=== PATIENT | female | born 1985 | race Caucasian/White ===

== ENCOUNTER 2017-09-11 16:15 | Inpatient (IN) | payer OTHER ==
[2017-09-11] MEDS ORDERED: ALBUTEROL HFA 8 GM INHALER INH (21:00)
[2017-09-11] MEDS: ACETAMINOPHEN 325 MG TAB PO (21:35)
[2017-09-11] MEDS: SUMATRIPTAN 6 MG/0.5 ML INJ SC (22:00)
[2017-09-12] MEDS: ACETAMINOPHEN 325 MG TAB PO ×4 (02:12→21:17)
[2017-09-12] MEDS: ALBUTEROL HFA 8 GM INHALER INH (02:13)
[2017-09-12] MEDS ORDERED: NACL 0.9% 3 ML SYG IV (09:00)
[2017-09-12] MEDS ORDERED: ONDANSETRON 4 MG INJ IV (09:00)
[2017-09-12] MEDS: ASPIRIN (EC) 81 MG TAB PO (09:07)
[2017-09-12] MEDS: LISINOPRIL 20 MG TAB PO (09:08)
[2017-09-12] MEDS: METOPROLOL (XL) 25 MG TAB PO (09:08)
[2017-09-12] MEDS: ENOXAPARIN 40 MG/0.4 ML SYG SC (09:10)
[2017-09-12 09:12] LABS: ADD MAN DIFF? NO
[2017-09-12 09:23] LABS: WHITE BLOOD COUNT 10.4 10^3/ul (4.8-10.8)
[2017-09-12 09:23] LABS: BASOPHILS % 0.3 % (0.0-2.0); EOSINOPHILS # 0.2 10^3/ul (0.0-0.5); EOSINOPHILS % 1.9 % (0.0-7.0); HEMATOCRIT 43.7 % (37.0-47.0); HEMOGLOBIN 14.2 g/dl (12.0-16.0); LYMPHOCYTES # 2.5 10^3/ul (0.8-2.9); LYMPHOCYTES % 23.8 % (15.0-51.0); MEAN CORPUSCULAR HEMOGLOBIN 28.3 pg (29.0-33.0); MEAN CORPUSCULAR HGB CONC 32.5 g/dl (32.0-37.0); MEAN CORPUSCULAR VOLUME 87.2 fl (82.0-101.0); MEAN PLATELET VOLUME 11.9 fl (7.4-10.4); MONOCYTE # 0.6 10^3/ul (0.3-0.9); MONOCYTES % 5.7 % (0.0-11.0); NEUTROPHIL # 7.1 10^3/ul (1.6-7.5); PLATELET COUNT 295 10^3/UL (140-415); RED BLOOD COUNT 5.01 10^6/ul (4.20-5.40); RED CELL DISTRIBUTION WIDTH 14.4 % (11.5-14.5)
[2017-09-12] MEDS: BUMETANIDE 1 MG TAB PO (09:34)
[2017-09-12] MEDS: IVABRADINE HCL 5 MG TABLET PO ×2 (09:35→20:57)
[2017-09-12 09:43] LABS: ALANINE AMINOTRANSFERASE 41 IU/L (13-69); ALBUMIN 3.7 g/dl (3.3-4.9); ALBUMIN/GLOBULIN RATIO 1.05; ALKALINE PHOSPHATASE 53 IU/L (42-121); ANION GAP 9 (8-16); ASPARTATE AMINO TRANSFERASE 24 IU/L (15-46); BILIRUBIN,INDIRECT 0.6 mg/dl (0-1.1); BILIRUBIN,TOTAL 0.6 mg/dl (0.2-1.3); BLOOD UREA NITROGEN 13 mg/dl (7-20); CALCIUM 9.4 mg/dl (8.4-10.2); CARBON DIOXIDE 29 mmol/L (21-31); CHLORIDE 108 mmol/L (97-110); CHOL/HDL RATIO 5.9 RATIO; CHOLESTEROL 148 mg/dl (100-200); CREATININE 0.67 mg/dl (0.44-1.00); GLUCOSE 116 mg/dl (70-220); HDL CHOLESTEROL 25 mg/dl (34-82); LDL CHOLESTEROL,CALCULATED 101 mg/dl; MAGNESIUM 1.8 mg/dl (1.7-2.5); PHOSPHORUS 3.7 mg/dl (2.5-4.9); POTASSIUM 4.1 mmol/L (3.5-5.1); SODIUM 142 mmol/L (135-144); TOTAL PROTEIN 7.2 g/dl (6.1-8.1); TRIGLYCERIDES 109 mg/dl (0-149)
[2017-09-12 12:02] LABS: ADD UMIC YES; UR ASCORBIC ACID NEGATIVE (NEGATIVE); UR BILIRUBIN (Dip) NEGATIVE (NEGATIVE); UR BLOOD (Dip) 1+ mg/dL (NEGATIVE); UR CLARITY CLEAR (CLEAR); UR COLOR COLORLESS (YELLOW); UR GLUCOSE (Dip) NEGATIVE (NEGATIVE); UR KETONES (Dip) NEGATIVE (NEGATIVE); UR LEUKOCYTE ESTERASE (Dip) NEGATIVE Leu/ul (NEGATIVE); UR NITRITE (Dip) NEGATIVE (NEGATIVE); UR RBC 0 /HPF (0-5); UR SPECIFIC GRAVITY (Dip) 1.005 (1.003-1.030); UR TOTAL PROTEIN (Dip) NEGATIVE (NEGATIVE); UR UROBILINOGEN (Dip) NEGATIVE (NEGATIVE); UR WBC 0 /HPF (0-5)
[2017-09-12] MEDS: PIPER-TAZO 3.375 GM IV (PMX) 100 ML IVPB ×2 (12:40→17:47)
[2017-09-12 14:00] LABS: HEMOGLOBIN A1C 5.9 % (0-5.9)
[2017-09-12 15:40] LABS: C-REACTIVE PROTEIN 1.1 mg/dl (0.0-0.9)
[2017-09-12 16:40] LABS: ERYTHROCYTE SEDIMENTATION RATE 30 mm/Hr (0-20)
[2017-09-12] MEDS: SPIRONOLACTONE 50 MG TAB PO (20:56)
[2017-09-12] MEDS: SACUBITRIL/VALSARTAN (24mg-26mg) TABLET PO (20:57)
[2017-09-13] MEDS: PIPER-TAZO 3.375 GM IV (PMX) 100 ML IVPB ×4 (00:36→17:24)
[2017-09-13] MEDS: ACETAMINOPHEN 325 MG TAB PO ×2 (05:54→21:45)
[2017-09-13 07:21] LABS: ADD MAN DIFF? NO
[2017-09-13 07:25] LABS: BASOPHILS % 0.3 % (0.0-2.0); EOSINOPHILS # 0.2 10^3/ul (0.0-0.5); EOSINOPHILS % 1.6 % (0.0-7.0); HEMATOCRIT 48.1 % (37.0-47.0); HEMOGLOBIN 15.7 g/dl (12.0-16.0); LYMPHOCYTES # 2.4 10^3/ul (0.8-2.9); LYMPHOCYTES % 16.1 % (15.0-51.0); MEAN CORPUSCULAR HEMOGLOBIN 28.5 pg (29.0-33.0); MEAN CORPUSCULAR HGB CONC 32.6 g/dl (32.0-37.0); MEAN CORPUSCULAR VOLUME 87.3 fl (82.0-101.0); MEAN PLATELET VOLUME 12.1 fl (7.4-10.4); MONOCYTE # 0.9 10^3/ul (0.3-0.9); MONOCYTES % 6.4 % (0.0-11.0); NEUTROPHILS % 75.2 % (39.0-77.0); PLATELET COUNT 308 10^3/UL (140-415); RED BLOOD COUNT 5.51 10^6/ul (4.20-5.40); RED CELL DISTRIBUTION WIDTH 14.7 % (11.5-14.5)
[2017-09-13 07:25] LABS: WHITE BLOOD COUNT 14.7 10^3/ul (4.8-10.8)
[2017-09-13 07:55] LABS: ANION GAP 10 (8-16); BLOOD UREA NITROGEN 14 mg/dl (7-20); CALCIUM 9.7 mg/dl (8.4-10.2); CARBON DIOXIDE 30 mmol/L (21-31); CHLORIDE 105 mmol/L (97-110); CREATININE 0.77 mg/dl (0.44-1.00); GLUCOSE 113 mg/dl (70-220); PHOSPHORUS 4.8 mg/dl (2.5-4.9); POTASSIUM 4.1 mmol/L (3.5-5.1); SODIUM 141 mmol/L (135-144)
[2017-09-13] MEDS: HYDROCODONE/APAP (5/325) TAB PO ×2 (08:54→15:28)
[2017-09-13 08:55] LABS: FOLATE 13.8 ng/ml (2.8-20.0)
[2017-09-13] MEDS: ASPIRIN (EC) 81 MG TAB PO (08:56)
[2017-09-13] MEDS: METOPROLOL (XL) 25 MG TAB PO (08:57)
[2017-09-13] MEDS: SACUBITRIL/VALSARTAN (24mg-26mg) TABLET PO ×2 (08:58→21:15)
[2017-09-13] MEDS: SPIRONOLACTONE 50 MG TAB PO ×2 (08:59→21:16)
[2017-09-13] MEDS: SENNA TAB PO ×2 (08:59→21:15)
[2017-09-13] MEDS: IVABRADINE HCL 5 MG TABLET PO ×2 (08:59→21:15)
[2017-09-13] MEDS: BUMETANIDE 1 MG TAB PO (09:00)
[2017-09-13] MEDS: ENOXAPARIN 40 MG/0.4 ML SYG SC (09:05)
[2017-09-13 11:42] LABS: GLUCOSE,CSF 65 mg/dl (50-80)
[2017-09-13 11:42] LABS: TOTAL PROTEIN,CSF 41 mg/dl (12-60)
[2017-09-13 11:43] LABS: CSF MN% 66.7 %; CSF PMN% 33.3 %; CSF RBC 0 /uL (0-0); CSF WBC 3 /cmm (0-10)
[2017-09-13 11:47] LABS: CSF COLOR COLORLESS
[2017-09-13 11:47] LABS: CSF CLARITY CLEAR; CSF VOLUME 14.8 ml; CSF#TUBE COUNT TUBE#4; CSF#TUBES REC'D 4
[2017-09-13 14:45] LABS: CREATINE KINASE 54 IU/L (23-200)
[2017-09-13 15:29] LABS: RHEUMATOID FACTOR NEGATIVE (NEGATIVE)
[2017-09-14] MEDS: PIPER-TAZO 3.375 GM IV (PMX) 100 ML IVPB ×2 (00:28→06:19)
[2017-09-14] MEDS: HYDROCODONE/APAP (5/325) TAB PO ×2 (02:35→09:29)
[2017-09-14] MEDS: morphine LIQ (10 MG/5 ML) CUP PO (07:14)
[2017-09-14 08:18] LABS: ADD MAN DIFF? NO
[2017-09-14 08:24] LABS: BASOPHILS % 0.3 % (0.0-2.0); EOSINOPHILS # 0.3 10^3/ul (0.0-0.5); EOSINOPHILS % 1.8 % (0.0-7.0); HEMATOCRIT 50.5 % (37.0-47.0); HEMOGLOBIN 16.6 g/dl (12.0-16.0); LYMPHOCYTES # 2.6 10^3/ul (0.8-2.9); LYMPHOCYTES % 16.8 % (15.0-51.0); MEAN CORPUSCULAR HEMOGLOBIN 28.6 pg (29.0-33.0); MEAN CORPUSCULAR HGB CONC 32.9 g/dl (32.0-37.0); MEAN CORPUSCULAR VOLUME 87.1 fl (82.0-101.0); MEAN PLATELET VOLUME 12.3 fl (7.4-10.4); MONOCYTE # 1.1 10^3/ul (0.3-0.9); MONOCYTES % 7.1 % (0.0-11.0); NEUTROPHIL # 11.4 10^3/ul (1.6-7.5); NEUTROPHILS % 73.7 % (39.0-77.0); PLATELET COUNT 360 10^3/UL (140-415)
[2017-09-14 08:24] LABS: WHITE BLOOD COUNT 15.4 10^3/ul (4.8-10.8)
[2017-09-14] MEDS: BUMETANIDE 1 MG TAB PO (08:49)
[2017-09-14] MEDS: SACUBITRIL/VALSARTAN (24mg-26mg) TABLET PO ×2 (08:50→20:40)
[2017-09-14] MEDS: SPIRONOLACTONE 50 MG TAB PO ×2 (08:50→20:41)
[2017-09-14] MEDS: IVABRADINE HCL 5 MG TABLET PO ×2 (08:50→20:40)
[2017-09-14] MEDS: ASPIRIN (EC) 81 MG TAB PO (08:51)
[2017-09-14] MEDS: METOPROLOL (XL) 25 MG TAB PO (08:51)
[2017-09-14 08:58] LABS: ANION GAP 14 (8-16); BLOOD UREA NITROGEN 19 mg/dl (7-20); CALCIUM 9.9 mg/dl (8.4-10.2); CARBON DIOXIDE 31 mmol/L (21-31); CHLORIDE 101 mmol/L (97-110); CREATININE 1.01 mg/dl (0.44-1.00); GLUCOSE 122 mg/dl (70-220); POTASSIUM 4.1 mmol/L (3.5-5.1); SODIUM 142 mmol/L (135-144)
[2017-09-14] MEDS: ENOXAPARIN 40 MG/0.4 ML SYG SC (09:09)
[2017-09-14] MEDS: SENNA TAB PO ×2 (09:30→20:40)
[2017-09-14] MEDS: CEFTRIAXONE 1 GM/50 ML (PMX) 50 ML IVPB (10:37)
[2017-09-14] MEDS: HYDROmorphONE 1 MG/ML SYG IV ×2 (12:59→20:40)
[2017-09-14 13:27] LABS: ANA SCREEN NEGATIVE (NEGATIVE)
[2017-09-14] MEDS: MAGNESIUM HYDROXIDE 30ML CUP PO (18:38)
[2017-09-15] MEDS: HYDROmorphONE 1 MG/ML SYG IV ×2 (02:42→10:21)
[2017-09-15 06:22] LABS: ADD MAN DIFF? NO
[2017-09-15 06:30] LABS: WHITE BLOOD COUNT 17.3 10^3/ul (4.8-10.8)
[2017-09-15 06:30] LABS: BASOPHIL # 0.1 10^3/ul (0.0-0.1); BASOPHILS % 0.3 % (0.0-2.0); EOSINOPHILS # 0.3 10^3/ul (0.0-0.5); EOSINOPHILS % 1.5 % (0.0-7.0); HEMATOCRIT 49.5 % (37.0-47.0); HEMOGLOBIN 16.2 g/dl (12.0-16.0); LYMPHOCYTES % 17.1 % (15.0-51.0); MEAN CORPUSCULAR HEMOGLOBIN 28.7 pg (29.0-33.0); MEAN CORPUSCULAR HGB CONC 32.7 g/dl (32.0-37.0); MEAN CORPUSCULAR VOLUME 87.6 fl (82.0-101.0); MEAN PLATELET VOLUME 12.2 fl (7.4-10.4); MONOCYTE # 1.3 10^3/ul (0.3-0.9); MONOCYTES % 7.6 % (0.0-11.0); NEUTROPHIL # 12.6 10^3/ul (1.6-7.5); NEUTROPHILS % 73.2 % (39.0-77.0); PLATELET COUNT 365 10^3/UL (140-415); RED BLOOD COUNT 5.65 10^6/ul (4.20-5.40)
[2017-09-15 06:55] LABS: ANION GAP 15 (8-16); BLOOD UREA NITROGEN 30 mg/dl (7-20); CALCIUM 9.6 mg/dl (8.4-10.2); CARBON DIOXIDE 28 mmol/L (21-31); CHLORIDE 100 mmol/L (97-110); CREATININE 1.01 mg/dl (0.44-1.00); GLUCOSE 117 mg/dl (70-220); POTASSIUM 4.7 mmol/L (3.5-5.1); SODIUM 138 mmol/L (135-144)
[2017-09-15] MEDS: SACUBITRIL/VALSARTAN (24mg-26mg) TABLET PO ×2 (08:24→22:36)
[2017-09-15] MEDS: IVABRADINE HCL 5 MG TABLET PO ×2 (08:25→22:36)
[2017-09-15] MEDS: METOPROLOL (XL) 25 MG TAB PO (08:25)
[2017-09-15] MEDS: SENNA TAB PO ×2 (08:25→22:36)
[2017-09-15] MEDS: SPIRONOLACTONE 50 MG TAB PO ×2 (08:25→22:35)
[2017-09-15] MEDS: ASPIRIN (EC) 81 MG TAB PO (08:25)
[2017-09-15] MEDS: BUMETANIDE 1 MG TAB PO (08:25)
[2017-09-15] MEDS: MAGNESIUM HYDROXIDE 30ML CUP PO (08:33)
[2017-09-15] MEDS: ENOXAPARIN 40 MG/0.4 ML SYG SC (08:40)
[2017-09-15] MEDS: CEFTRIAXONE 1 GM/50 ML (PMX) 50 ML IVPB (10:15)
[2017-09-15] MEDS: NA PHOSPHATE/BIPHOS 133 ML ENEMA PR (10:15)
[2017-09-15] MEDS: FAMOTIDINE 20 MG TAB PO ×2 (12:43→22:35)
[2017-09-15] MEDS: ACETAMINOPHEN 325 MG TAB PO (12:46)
[2017-09-15] MEDS ORDERED: HYDROmorphONE 4 MG TAB PO (15:30)
[2017-09-15] MEDS: HYDROCODONE/APAP (5/325) TAB PO (22:02)
[2017-09-16] MEDS: HYDROmorphONE 2 MG TAB PO ×4 (00:23→20:25)
[2017-09-16] MEDS: PHENAZOPYRIDINE 200 MG TAB PO ×4 (02:41→21:29)
[2017-09-16] MEDS: HYDROCODONE/APAP (5/325) TAB PO ×3 (03:58→23:01)
[2017-09-16 06:05] LABS: ADD MAN DIFF? NO
[2017-09-16 06:24] LABS: BASOPHILS % 0.2 % (0.0-2.0); EOSINOPHILS # 0.2 10^3/ul (0.0-0.5); EOSINOPHILS % 1.3 % (0.0-7.0); HEMATOCRIT 48.1 % (37.0-47.0); HEMOGLOBIN 15.7 g/dl (12.0-16.0); LYMPHOCYTES # 2.4 10^3/ul (0.8-2.9); LYMPHOCYTES % 13.8 % (15.0-51.0); MEAN CORPUSCULAR HEMOGLOBIN 28.5 pg (29.0-33.0); MEAN CORPUSCULAR HGB CONC 32.6 g/dl (32.0-37.0); MEAN CORPUSCULAR VOLUME 87.5 fl (82.0-101.0); MEAN PLATELET VOLUME 12.6 fl (7.4-10.4); MONOCYTE # 1.3 10^3/ul (0.3-0.9); MONOCYTES % 7.5 % (0.0-11.0); NEUTROPHIL # 13.5 10^3/ul (1.6-7.5); NEUTROPHILS % 76.7 % (39.0-77.0); PLATELET COUNT 343 10^3/UL (140-415); RED CELL DISTRIBUTION WIDTH 15.3 % (11.5-14.5)
[2017-09-16 06:24] LABS: WHITE BLOOD COUNT 17.6 10^3/ul (4.8-10.8)
[2017-09-16 07:27] LABS: ANION GAP 17 (8-16); BLOOD UREA NITROGEN 40 mg/dl (7-20); CALCIUM 9.4 mg/dl (8.4-10.2); CARBON DIOXIDE 28 mmol/L (21-31); CHLORIDE 99 mmol/L (97-110); CREATININE 1.05 mg/dl (0.44-1.00); GLUCOSE 122 mg/dl (70-220); POTASSIUM 4.8 mmol/L (3.5-5.1); SODIUM 139 mmol/L (135-144)
[2017-09-16] MEDS: IVABRADINE HCL 5 MG TABLET PO ×2 (08:32→20:25)
[2017-09-16] MEDS: SPIRONOLACTONE 50 MG TAB PO ×2 (08:32→20:24)
[2017-09-16] MEDS: BUMETANIDE 1 MG TAB PO (08:32)
[2017-09-16] MEDS: SENNA TAB PO ×2 (08:33→21:30)
[2017-09-16] MEDS: FAMOTIDINE 20 MG TAB PO (08:33)
[2017-09-16] MEDS: ASPIRIN (EC) 81 MG TAB PO (08:33)
[2017-09-16] MEDS: METOPROLOL (XL) 25 MG TAB PO (08:33)
[2017-09-16] MEDS: SACUBITRIL/VALSARTAN (24mg-26mg) TABLET PO ×2 (08:33→20:25)
[2017-09-16] MEDS: ENOXAPARIN 40 MG/0.4 ML SYG SC (08:37)
[2017-09-16] MEDS: CEFTRIAXONE 1 GM/50 ML (PMX) 50 ML IVPB (10:45)
[2017-09-16 15:51] LABS: ACETYLCHOLINE RECEPTOR AB <0.30 nmol/L
[2017-09-16] MEDS: LIDOCAINE/MYLANTA 40 ML BTL PO (16:37)
[2017-09-16] MEDS: PANTOPRAZOLE (EC) 40 MG TAB PO (18:07)
[2017-09-16] MEDS: MAGNESIUM HYDROXIDE 30ML CUP PO (20:23)
[2017-09-17] MEDS: HYDROmorphONE 2 MG TAB PO ×2 (03:55→17:19)
[2017-09-17 05:24] LABS: ADD MAN DIFF? NO
[2017-09-17 05:34] LABS: BASOPHIL # 0.1 10^3/ul (0.0-0.1); BASOPHILS % 0.3 % (0.0-2.0); EOSINOPHILS # 0.2 10^3/ul (0.0-0.5); EOSINOPHILS % 1.4 % (0.0-7.0); HEMATOCRIT 47.1 % (37.0-47.0); HEMOGLOBIN 15.9 g/dl (12.0-16.0); LYMPHOCYTES # 2.6 10^3/ul (0.8-2.9); LYMPHOCYTES % 16.1 % (15.0-51.0); MEAN CORPUSCULAR HEMOGLOBIN 29.5 pg (29.0-33.0); MEAN CORPUSCULAR HGB CONC 33.8 g/dl (32.0-37.0); MEAN CORPUSCULAR VOLUME 87.4 fl (82.0-101.0); MEAN PLATELET VOLUME 12.6 fl (7.4-10.4); MONOCYTE # 1.3 10^3/ul (0.3-0.9); MONOCYTES % 8.3 % (0.0-11.0); NEUTROPHIL # 11.8 10^3/ul (1.6-7.5); NEUTROPHILS % 73.5 % (39.0-77.0); PLATELET COUNT 343 10^3/UL (140-415); RED BLOOD COUNT 5.39 10^6/ul (4.20-5.40); RED CELL DISTRIBUTION WIDTH 15.2 % (11.5-14.5)
[2017-09-17] MEDS: PANTOPRAZOLE (EC) 40 MG TAB PO ×2 (06:00→17:19)
[2017-09-17 06:02] LABS: ANION GAP 16 (8-16); BLOOD UREA NITROGEN 43 mg/dl (7-20); CALCIUM 9.4 mg/dl (8.4-10.2); CARBON DIOXIDE 30 mmol/L (21-31); CHLORIDE 98 mmol/L (97-110); CREATININE 1.01 mg/dl (0.44-1.00); GLUCOSE 123 mg/dl (70-220); POTASSIUM 4.6 mmol/L (3.5-5.1); SODIUM 139 mmol/L (135-144)
[2017-09-17 06:41] LABS: TROPONIN-I < 0.012 ng/ml (0.000-0.120)
[2017-09-17 08:05] LABS: FOLATE 8.5 ng/ml (2.8-20.0)
[2017-09-17] MEDS: PHENAZOPYRIDINE 200 MG TAB PO ×3 (09:37→21:01)
[2017-09-17] MEDS: SENNA TAB PO ×2 (09:37→21:02)
[2017-09-17] MEDS: SACUBITRIL/VALSARTAN (24mg-26mg) TABLET PO ×2 (09:37→21:01)
[2017-09-17] MEDS: ASPIRIN (EC) 81 MG TAB PO (09:37)
[2017-09-17] MEDS: MAGNESIUM HYDROXIDE 30ML CUP PO ×2 (09:37→21:01)
[2017-09-17] MEDS: IVABRADINE HCL 5 MG TABLET PO ×2 (09:38→21:01)
[2017-09-17] MEDS: METOPROLOL (XL) 25 MG TAB PO (09:38)
[2017-09-17] MEDS: SPIRONOLACTONE 50 MG TAB PO ×2 (09:38→21:02)
[2017-09-17] MEDS: ENOXAPARIN 40 MG/0.4 ML SYG SC (09:55)
[2017-09-17] MEDS: BUMETANIDE 1 MG TAB PO (12:33)
[2017-09-17] MEDS: CEFTRIAXONE 1 GM/50 ML (PMX) 50 ML IVPB (12:33)
[2017-09-17] MEDS: ACETAMINOPHEN 325 MG TAB PO (13:24)
[2017-09-17 15:08] LABS: RAPID PLASMA REAGIN NONREACTIVE (NR)
[2017-09-17 17:46] LABS: VITAMIN B1 (THIAMINE) 143 nmol/L (78-185)
[2017-09-18] MEDS: HYDROmorphONE 2 MG TAB PO ×2 (02:19→15:37)
[2017-09-18] MEDS: PANTOPRAZOLE (EC) 40 MG TAB PO ×2 (06:06→18:30)
[2017-09-18 06:19] LABS: ADD MAN DIFF? NO
[2017-09-18 06:27] LABS: BASOPHIL # 0.1 10^3/ul (0.0-0.1); BASOPHILS % 0.4 % (0.0-2.0); EOSINOPHILS # 0.2 10^3/ul (0.0-0.5); EOSINOPHILS % 1.4 % (0.0-7.0); HEMATOCRIT 48.2 % (37.0-47.0); HEMOGLOBIN 15.7 g/dl (12.0-16.0); LYMPHOCYTES # 2.2 10^3/ul (0.8-2.9); MEAN CORPUSCULAR HEMOGLOBIN 28.6 pg (29.0-33.0); MEAN CORPUSCULAR HGB CONC 32.6 g/dl (32.0-37.0); MEAN PLATELET VOLUME 12.8 fl (7.4-10.4); MONOCYTE # 1.4 10^3/ul (0.3-0.9); MONOCYTES % 9.2 % (0.0-11.0); NEUTROPHIL # 11.6 10^3/ul (1.6-7.5); NEUTROPHILS % 74.6 % (39.0-77.0); PLATELET COUNT 345 10^3/UL (140-415); RED BLOOD COUNT 5.48 10^6/ul (4.20-5.40); RED CELL DISTRIBUTION WIDTH 14.6 % (11.5-14.5)
[2017-09-18 06:27] LABS: WHITE BLOOD COUNT 15.5 10^3/ul (4.8-10.8)
[2017-09-18 06:55] LABS: LIPASE 217 U/L (23-300)
[2017-09-18 06:59] LABS: ALANINE AMINOTRANSFERASE 89 IU/L (13-69); ALBUMIN 4.3 g/dl (3.3-4.9); ALBUMIN/GLOBULIN RATIO 1.22; ALKALINE PHOSPHATASE 66 IU/L (42-121); ANION GAP 18 (8-16); ASPARTATE AMINO TRANSFERASE 49 IU/L (15-46); BLOOD UREA NITROGEN 41 mg/dl (7-20); CALCIUM 9.4 mg/dl (8.4-10.2); CARBON DIOXIDE 29 mmol/L (21-31); CHLORIDE 95 mmol/L (97-110); CREATININE 0.98 mg/dl (0.44-1.00); GLUCOSE 123 mg/dl (70-220); MAGNESIUM 3.1 mg/dl (1.7-2.5); PHOSPHORUS 4.4 mg/dl (2.5-4.9); POTASSIUM 4.5 mmol/L (3.5-5.1); SODIUM 137 mmol/L (135-144); TOTAL PROTEIN 7.8 g/dl (6.1-8.1)
[2017-09-18] MEDS: BUMETANIDE 1 MG TAB PO (08:47)
[2017-09-18] MEDS: PHENAZOPYRIDINE 200 MG TAB PO ×3 (08:47→21:12)
[2017-09-18] MEDS: SPIRONOLACTONE 50 MG TAB PO ×2 (08:47→21:12)
[2017-09-18] MEDS: IVABRADINE HCL 5 MG TABLET PO ×2 (08:47→21:11)
[2017-09-18] MEDS: SACUBITRIL/VALSARTAN (24mg-26mg) TABLET PO ×2 (08:47→21:11)
[2017-09-18] MEDS: ASPIRIN (EC) 81 MG TAB PO (08:47)
[2017-09-18] MEDS: SENNA TAB PO ×2 (08:47→21:12)
[2017-09-18] MEDS: METOPROLOL (XL) 25 MG TAB PO (08:48)
[2017-09-18] MEDS: MAGNESIUM HYDROXIDE 30ML CUP PO ×2 (08:48→21:12)
[2017-09-18] MEDS: ENOXAPARIN 40 MG/0.4 ML SYG SC (09:30)
[2017-09-18] MEDS: traMADol 50 MG TAB PO (21:22)
[2017-09-19] MEDS: PANTOPRAZOLE (EC) 40 MG TAB PO ×2 (05:41→17:47)
[2017-09-19] MEDS: ASPIRIN (EC) 81 MG TAB PO (09:46)
[2017-09-19] MEDS: METOPROLOL (XL) 25 MG TAB PO (09:46)
[2017-09-19] MEDS: SACUBITRIL/VALSARTAN (24mg-26mg) TABLET PO ×2 (09:47→20:43)
[2017-09-19] MEDS: IVABRADINE HCL 5 MG TABLET PO ×2 (09:47→20:43)
[2017-09-19] MEDS: SPIRONOLACTONE 50 MG TAB PO ×2 (09:48→20:43)
[2017-09-19] MEDS: PHENAZOPYRIDINE 200 MG TAB PO ×3 (09:48→20:43)
[2017-09-19] MEDS: ENOXAPARIN 40 MG/0.4 ML SYG SC (09:50)
[2017-09-19] MEDS: BUMETANIDE 1 MG TAB PO (10:02)
[2017-09-19] MEDS: SENNA TAB PO ×2 (10:02→21:13)
[2017-09-19 15:07] LABS: ACETYLCHOLINE RECEPTOR AB <0.30 nmol/L
[2017-09-19] MEDS: traMADol 50 MG TAB PO (20:43)
[2017-09-20] MEDS: PANTOPRAZOLE (EC) 40 MG TAB PO ×2 (06:02→18:47)
[2017-09-20] MEDS: SPIRONOLACTONE 50 MG TAB PO ×2 (08:46→22:02)
[2017-09-20] MEDS: ASPIRIN (EC) 81 MG TAB PO (08:46)
[2017-09-20] MEDS: BUMETANIDE 1 MG TAB PO (08:47)
[2017-09-20] MEDS: SACUBITRIL/VALSARTAN (24mg-26mg) TABLET PO ×2 (08:47→21:57)
[2017-09-20] MEDS: PHENAZOPYRIDINE 200 MG TAB PO ×3 (08:47→22:01)
[2017-09-20] MEDS: GABAPENTIN 100 MG CAP PO ×3 (08:48→22:01)
[2017-09-20] MEDS: IVABRADINE HCL 5 MG TABLET PO ×2 (08:48→22:02)
[2017-09-20] MEDS: METOPROLOL (XL) 25 MG TAB PO (08:48)
[2017-09-20] MEDS: SENNA TAB PO ×2 (08:49→21:00)
[2017-09-20] MEDS: ENOXAPARIN 40 MG/0.4 ML SYG SC (08:51)
[2017-09-21] MEDS: PANTOPRAZOLE (EC) 40 MG TAB PO ×2 (05:44→17:54)
[2017-09-21] MEDS: METOPROLOL (XL) 25 MG TAB PO (09:00)
[2017-09-21] MEDS: BUMETANIDE 1 MG TAB PO (09:00)
[2017-09-21] MEDS: SPIRONOLACTONE 50 MG TAB PO ×2 (09:00→20:55)
[2017-09-21] MEDS: ASPIRIN (EC) 81 MG TAB PO (10:07)
[2017-09-21] MEDS: GABAPENTIN 100 MG CAP PO ×3 (10:08→20:58)
[2017-09-21] MEDS: PHENAZOPYRIDINE 200 MG TAB PO ×3 (10:08→20:55)
[2017-09-21] MEDS: SENNA TAB PO ×2 (10:08→20:57)
[2017-09-21] MEDS: IVABRADINE HCL 5 MG TABLET PO ×2 (10:09→20:58)
[2017-09-21] MEDS: SACUBITRIL/VALSARTAN (24mg-26mg) TABLET PO ×2 (10:09→20:55)
[2017-09-21] MEDS: ENOXAPARIN 40 MG/0.4 ML SYG SC (10:12)
[2017-09-22] MEDS: traMADol 50 MG TAB PO ×2 (00:34→06:25)
[2017-09-22] MEDS: PANTOPRAZOLE (EC) 40 MG TAB PO ×2 (05:44→17:20)
[2017-09-22] MEDS: IVABRADINE HCL 5 MG TABLET PO ×2 (10:03→21:12)
[2017-09-22] MEDS: ENOXAPARIN 40 MG/0.4 ML SYG SC (10:03)
[2017-09-22] MEDS: SENNA TAB PO ×2 (10:03→21:09)
[2017-09-22] MEDS: ASPIRIN (EC) 81 MG TAB PO (10:04)
[2017-09-22] MEDS: BUMETANIDE 1 MG TAB PO (10:04)
[2017-09-22] MEDS: GABAPENTIN 100 MG CAP PO ×3 (10:04→21:10)
[2017-09-22] MEDS: SACUBITRIL/VALSARTAN (24mg-26mg) TABLET PO ×2 (10:04→21:12)
[2017-09-22] MEDS: SPIRONOLACTONE 50 MG TAB PO ×2 (10:06→21:11)
[2017-09-22] MEDS: METOPROLOL (XL) 25 MG TAB PO (10:07)
[2017-09-22] MEDS: PHENAZOPYRIDINE 200 MG TAB PO ×3 (10:59→21:09)
[2017-09-23] MEDS: PANTOPRAZOLE (EC) 40 MG TAB PO ×2 (05:47→17:15)
[2017-09-23] MEDS: SENNA TAB PO ×2 (09:01→20:19)
[2017-09-23] MEDS: ASPIRIN (EC) 81 MG TAB PO (09:01)
[2017-09-23] MEDS: SPIRONOLACTONE 50 MG TAB PO ×2 (09:02→20:21)
[2017-09-23] MEDS: GABAPENTIN 100 MG CAP PO ×3 (09:02→20:18)
[2017-09-23] MEDS: SACUBITRIL/VALSARTAN (24mg-26mg) TABLET PO ×2 (09:03→20:19)
[2017-09-23] MEDS: BUMETANIDE 1 MG TAB PO (09:03)
[2017-09-23] MEDS: IVABRADINE HCL 5 MG TABLET PO ×2 (09:03→20:19)
[2017-09-23] MEDS: METOPROLOL (XL) 25 MG TAB PO (09:05)
[2017-09-23] MEDS: ENOXAPARIN 40 MG/0.4 ML SYG SC (09:06)
[2017-09-23] MEDS: PHENAZOPYRIDINE 200 MG TAB PO ×3 (09:47→20:18)
[2017-09-24] MEDS: PANTOPRAZOLE (EC) 40 MG TAB PO ×2 (05:59→17:16)
[2017-09-24] MEDS: SACUBITRIL/VALSARTAN (24mg-26mg) TABLET PO ×2 (08:06→22:57)
[2017-09-24] MEDS: BUMETANIDE 1 MG TAB PO (08:06)
[2017-09-24] MEDS: GABAPENTIN 100 MG CAP PO ×3 (08:07→22:56)
[2017-09-24] MEDS: ASPIRIN (EC) 81 MG TAB PO (08:07)
[2017-09-24] MEDS: SPIRONOLACTONE 50 MG TAB PO ×2 (08:07→22:56)
[2017-09-24] MEDS: PHENAZOPYRIDINE 200 MG TAB PO ×3 (08:07→22:58)
[2017-09-24] MEDS: IVABRADINE HCL 5 MG TABLET PO ×2 (08:07→22:57)
[2017-09-24] MEDS: METOPROLOL (XL) 25 MG TAB PO (08:07)
[2017-09-24] MEDS: SENNA TAB PO ×2 (08:08→22:59)
[2017-09-24] MEDS: ENOXAPARIN 40 MG/0.4 ML SYG SC (08:11)
[2017-09-24] MEDS ORDERED: METHYLPREDNISOLONE (10 MG/ML) IV SYG IV (14:16)
[2017-09-24] MEDS: IMMUNE GLOBULIN(HUMAN)10% 10 ML INJ IV* (15:00)
[2017-09-24] MEDS: METHYLPRED. NA SUCC 1,000 MG in SOD CHLORIDE 0.9% 100 ML IV (17:04)
[2017-09-24] MEDS ORDERED: IMMUN GLOB 10% IV (18:00)
[2017-09-24] MEDS ORDERED: IVIG IV (18:00)
[2017-09-24] MEDS ORDERED: EVAC CONTAINER IV ×2 (18:00)
[2017-09-25] MEDS: EVAC CONTAINER IV ×2 (01:43→17:06)
[2017-09-25] MEDS: IVIG IV ×2 (01:43→17:06)
[2017-09-25] MEDS: PANTOPRAZOLE (EC) 40 MG TAB PO ×2 (05:09→17:05)
[2017-09-25] MEDS: ACETAMINOPHEN 325 MG TAB PO ×2 (05:10→12:35)
[2017-09-25 05:37] LABS: ADD MAN DIFF? NO
[2017-09-25 05:42] LABS: WHITE BLOOD COUNT 10.1 10^3/ul (4.8-10.8)
[2017-09-25 05:42] LABS: BASOPHILS % 0.1 % (0.0-2.0); HEMATOCRIT 43.9 % (37.0-47.0); HEMOGLOBIN 14.5 g/dl (12.0-16.0); LYMPHOCYTES % 9.4 % (15.0-51.0); MEAN CORPUSCULAR HEMOGLOBIN 28.7 pg (29.0-33.0); MEAN CORPUSCULAR VOLUME 86.9 fl (82.0-101.0); MEAN PLATELET VOLUME 12.8 fl (7.4-10.4); MONOCYTE # 0.1 10^3/ul (0.3-0.9); MONOCYTES % 0.6 % (0.0-11.0); NEUTROPHILS % 89.5 % (39.0-77.0); PLATELET COUNT 329 10^3/UL (140-415); RED BLOOD COUNT 5.05 10^6/ul (4.20-5.40); RED CELL DISTRIBUTION WIDTH 12.8 % (11.5-14.5)
[2017-09-25 06:08] LABS: ALANINE AMINOTRANSFERASE 59 IU/L (13-69); ALBUMIN 4.1 g/dl (3.3-4.9); ALBUMIN/GLOBULIN RATIO 0.93; ALKALINE PHOSPHATASE 61 IU/L (42-121); ANION GAP 16 (8-16); ASPARTATE AMINO TRANSFERASE 25 IU/L (15-46); BILIRUBIN,INDIRECT 0.6 mg/dl (0-1.1); BILIRUBIN,TOTAL 0.6 mg/dl (0.2-1.3); BLOOD UREA NITROGEN 31 mg/dl (7-20); CALCIUM 9.5 mg/dl (8.4-10.2); CARBON DIOXIDE 26 mmol/L (21-31); CHLORIDE 100 mmol/L (97-110); CREATININE 1.07 mg/dl (0.44-1.00); GLUCOSE 160 mg/dl (70-220); POTASSIUM 4.3 mmol/L (3.5-5.1); SODIUM 138 mmol/L (135-144); TOTAL PROTEIN 8.5 g/dl (6.1-8.1)
[2017-09-25] MEDS: SACUBITRIL/VALSARTAN (24mg-26mg) TABLET PO ×2 (09:27→21:59)
[2017-09-25] MEDS: GABAPENTIN 100 MG CAP PO ×3 (09:27→21:58)
[2017-09-25] MEDS: SENNA TAB PO ×2 (09:27→21:59)
[2017-09-25] MEDS: IVABRADINE HCL 5 MG TABLET PO ×2 (09:27→21:58)
[2017-09-25] MEDS: PHENAZOPYRIDINE 200 MG TAB PO ×3 (09:27→21:58)
[2017-09-25] MEDS: BUMETANIDE 1 MG TAB PO (09:27)
[2017-09-25] MEDS: ASPIRIN (EC) 81 MG TAB PO (09:27)
[2017-09-25] MEDS: SPIRONOLACTONE 50 MG TAB PO ×2 (09:28→21:59)
[2017-09-25] MEDS: METOPROLOL (XL) 25 MG TAB PO (09:29)
[2017-09-25] MEDS: ENOXAPARIN 40 MG/0.4 ML SYG SC (09:32)
[2017-09-26] MEDS: PANTOPRAZOLE (EC) 40 MG TAB PO ×2 (06:14→18:00)
[2017-09-26] MEDS: SENNA TAB PO ×2 (08:58→20:38)
[2017-09-26] MEDS: GABAPENTIN 100 MG CAP PO ×3 (08:58→20:39)
[2017-09-26] MEDS: SACUBITRIL/VALSARTAN (24mg-26mg) TABLET PO ×2 (08:58→20:39)
[2017-09-26] MEDS: PHENAZOPYRIDINE 200 MG TAB PO ×3 (08:59→20:38)
[2017-09-26] MEDS: SPIRONOLACTONE 50 MG TAB PO ×2 (08:59→20:39)
[2017-09-26] MEDS: ASPIRIN (EC) 81 MG TAB PO (08:59)
[2017-09-26] MEDS: IVABRADINE HCL 5 MG TABLET PO ×2 (08:59→20:39)
[2017-09-26] MEDS: BUMETANIDE 1 MG TAB PO (08:59)
[2017-09-26] MEDS: METOPROLOL (XL) 25 MG TAB PO (08:59)
[2017-09-26] MEDS: ENOXAPARIN 40 MG/0.4 ML SYG SC (09:16)
[2017-09-26] MEDS: EVAC CONTAINER IV (18:40)
[2017-09-26] MEDS: IVIG IV (18:40)
[2017-09-27] MEDS: PANTOPRAZOLE (EC) 40 MG TAB PO ×2 (05:37→18:38)
[2017-09-27] MEDS: IVABRADINE HCL 5 MG TABLET PO ×2 (09:18→21:28)
[2017-09-27] MEDS: SACUBITRIL/VALSARTAN (24mg-26mg) TABLET PO ×2 (09:18→21:29)
[2017-09-27] MEDS: PHENAZOPYRIDINE 200 MG TAB PO ×3 (09:18→21:28)
[2017-09-27] MEDS: BUMETANIDE 1 MG TAB PO (09:18)
[2017-09-27] MEDS: SENNA TAB PO ×2 (09:38→21:28)
[2017-09-27] MEDS: ASPIRIN (EC) 81 MG TAB PO (09:38)
[2017-09-27] MEDS: SPIRONOLACTONE 50 MG TAB PO ×2 (09:38→21:00)
[2017-09-27] MEDS: GABAPENTIN 100 MG CAP PO ×3 (09:38→21:28)
[2017-09-27] MEDS: METOPROLOL (XL) 25 MG TAB PO (09:38)
[2017-09-27] MEDS: ENOXAPARIN 40 MG/0.4 ML SYG SC (09:46)
[2017-09-27] MEDS: IVIG IV (18:39)
[2017-09-27] MEDS: EVAC CONTAINER IV (18:39)
[2017-09-27] MEDS: ACETAMINOPHEN 325 MG TAB PO (18:43)
[2017-09-28] MEDS: ACETAMINOPHEN 325 MG TAB PO ×2 (00:02→09:59)
[2017-09-28] MEDS: PANTOPRAZOLE (EC) 40 MG TAB PO ×2 (06:05→18:16)
[2017-09-28] MEDS: IVABRADINE HCL 5 MG TABLET PO ×2 (09:37→20:52)
[2017-09-28] MEDS: SENNA TAB PO ×2 (09:37→20:52)
[2017-09-28] MEDS: SACUBITRIL/VALSARTAN (24mg-26mg) TABLET PO ×2 (09:37→20:52)
[2017-09-28] MEDS: SPIRONOLACTONE 50 MG TAB PO ×2 (09:37→20:52)
[2017-09-28] MEDS: GABAPENTIN 100 MG CAP PO ×3 (09:37→20:52)
[2017-09-28] MEDS: PHENAZOPYRIDINE 200 MG TAB PO ×3 (09:37→20:52)
[2017-09-28] MEDS: ASPIRIN (EC) 81 MG TAB PO (09:37)
[2017-09-28] MEDS: BUMETANIDE 1 MG TAB PO (09:37)
[2017-09-28] MEDS: METOPROLOL (XL) 25 MG TAB PO (09:38)
[2017-09-28] MEDS: ENOXAPARIN 40 MG/0.4 ML SYG SC (09:42)
[2017-09-28] MEDS: IVIG IV (18:16)
[2017-09-28] MEDS: EVAC CONTAINER IV (18:16)
[2017-09-29] MEDS: PANTOPRAZOLE (EC) 40 MG TAB PO (06:29)
[2017-09-29] MEDS: BUMETANIDE 1 MG TAB PO (09:11)
[2017-09-29] MEDS: SPIRONOLACTONE 50 MG TAB PO (09:11)
[2017-09-29] MEDS: GABAPENTIN 100 MG CAP PO (09:11)
[2017-09-29] MEDS: PHENAZOPYRIDINE 200 MG TAB PO (09:11)
[2017-09-29] MEDS: SACUBITRIL/VALSARTAN (24mg-26mg) TABLET PO (09:11)
[2017-09-29] MEDS: SENNA TAB PO (09:11)
[2017-09-29] MEDS: IVABRADINE HCL 5 MG TABLET PO (09:11)
[2017-09-29] MEDS: ASPIRIN (EC) 81 MG TAB PO (09:11)
[2017-09-29] MEDS: METOPROLOL (XL) 25 MG TAB PO (09:12)
[2017-09-29] MEDS: ENOXAPARIN 40 MG/0.4 ML SYG SC (09:12)
== END 2017-09-29 13:00 | disposition home health service (06) | DRG 95 ==
LOC: MS2 16:15 → TEL 09-12 18:50 → MS2 09-15 20:33
PROVIDERS: Internal Medicine
PROC: 00JU3ZZ Inspection of Spinal Canal, Percutaneous Approach (ICD-10-PCS; principal; 2017-09-13)
DX: G61.0 Guillain-Barre syndrome (principal); Z68.44 Body mass index [BMI] 60.0-69.9, adult; I42.0 Dilated cardiomyopathy; I50.22 Chronic systolic (congestive) heart failure; N39.0 Urinary tract infection, site not specified; R53.1 Weakness; J45.909 Unspecified asthma, uncomplicated; E66.01 Morbid (severe) obesity due to excess calories; J44.9 Chronic obstructive pulmonary disease, unspecified; I11.0 Hypertensive heart disease with heart failure; H53.2 Diplopia; K59.00 Constipation, unspecified; M51.27 Other intervertebral disc displacement, lumbosacral region; G62.9 Polyneuropathy, unspecified; M50.222 Other cervical disc displacement at C5-C6 level; Z79.82 Long term (current) use of aspirin
CPT/HCPCS: 74018; 76775; 80048; 80053; 80061; 81001; 82040; 82042; 82550; 82607; 82746; 82784; 82945; 83036; 83519; 83690; 83735; 84100; 84157; 84166; 84425; 84443; 84484; 85025; 85651; 86038; 86140; 86430; 86592; 87040; 87070; 87086; 87102; 88104; 89051; 93306; 97110; 97116; 97163; 97530